=== PATIENT | male | born 1950 | race Caucasian/White ===

== ENCOUNTER 2021-11-07 09:44 | Day surgery (SDC) | payer OTHER ==
[2021-11-07] MEDS ORDERED: CARV6.25 PO (10:47)
[2021-11-07] MEDS ORDERED: ALOGLIPTIN25 M1 PO (10:47)
[2021-11-07] MEDS ORDERED: FINA5 PO (10:48)
[2021-11-07] MEDS ORDERED: CHLO25B PO (10:48)
[2021-11-07] MEDS ORDERED: GABA300 PO (10:49)
[2021-11-07] MEDS ORDERED: INSULANI SC (10:49)
[2021-11-07] MEDS ORDERED: OMEGA-3 FISH O1 EAC6 PO (10:50)
[2021-11-07] MEDS ORDERED: TAMS.4ER PO (10:50)
[2021-11-07] MEDS ORDERED: PIOG30 PO (10:50)
[2021-11-07] MEDS ORDERED: OMEP20ER PO (10:51)
[2021-11-07] MEDS ORDERED: TRAM50 PO (10:51)
== END 2021-11-07 22:50 | disposition home or self-care (01) ==
LOC: CT 09:44
DX: I25.10 Atherosclerotic heart disease of native coronary artery without angina pectoris (principal); R00.0 Tachycardia, unspecified; E78.5 Hyperlipidemia, unspecified; R00.1 Bradycardia, unspecified; E78.00 Pure hypercholesterolemia, unspecified; I12.9 Hypertensive chronic kidney disease with stage 1 through stage 4 chronic kidney disease, or unspecified chronic kidney disease; N18.9 Chronic kidney disease, unspecified; E11.22 Type 2 diabetes mellitus with diabetic chronic kidney disease; Z88.1 Allergy status to other antibiotic agents; Z88.5 Allergy status to narcotic agent; Z88.8 Allergy status to other drugs, medicaments and biological substances; Z79.4 Long term (current) use of insulin; Z79.899 Other long term (current) drug therapy
CPT/HCPCS: 75571

== ENCOUNTER 2021-11-16 08:57 | Day surgery (SDC) | payer OTHER ==
[~2021-11-16] VITALS: Ht 180.3 cm; Wt 97.6 kg
[~2021-11-16 08:57] MED LIST: ALOGLIPTIN25 M1 PO; CARV6.25 PO; CHLO25B PO; FINA5 PO; GABA300 PO; INSULANI SC; OMEGA-3 FISH O1 EAC6 PO; OMEP20ER PO; PIOG30 PO; ROSU10TA PO; TAMS.4ER PO; TRAM50 PO
[2021-11-16] MEDS ORDERED: ASPI81CH PO (09:42)
--- NOTE | 2021-11-16 11:35 | NUR ---
PT TO RECOVERY ROOM POST PROCEDURE. PT AWAKE AND CONVERSING APPROPRIATELY, DENIES CHEST PAIN POST PROCEDURE. MONITOR SB 40-50'S, B/P 136/61, AFEBRILE, SPO2 96% RA. R RADIAL SITE NO SWELLING/HEMATOMA, TR BAND IN PLACE; RUE POSITIVE PLEUTH POST TR BAND PLACEMENT. PT'S AT BEDSIDE, ATTENTIVE.
--- NOTE | 2021-11-16 12:00 | NUR ---
PT AMB TO THE BATHROOM, GAIT STEADY, VOIDED QS; SITE UNCHANGED WITH ACTIVITY.
--- NOTE | 2021-11-16 12:37 | NUR ---
DR MEJIA INTO DISCUSS PROCEDURE RESULT AND PLAN WITH PT.
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
--- NOTE | 2021-11-16 18:45 | NUR ---
PT TRANSFERRED VIA AMBULANCE TO [facility]. REPORT CALLED TO [facility]. NO QUESTIONS OR CONCERNS. FAMILY MEMEBERS AT BEDSIDE INFORMED OF PT'S RM # AND CONTACT PHONE NUMBER. THEY TOOK HIS BELONGINGS HOME AT THIS TIME. NO FURTHER NEEDS IDENTIFIED AT THIS TIME.
== END 2021-11-16 18:31 | disposition short-term general hospital (02) ==
LOC: MHTC 08:57 → PCU 13:21 → MHTC 18:31
DX: I25.10 Atherosclerotic heart disease of native coronary artery without angina pectoris (principal); E78.1 Pure hyperglyceridemia; E78.00 Pure hypercholesterolemia, unspecified; E11.22 Type 2 diabetes mellitus with diabetic chronic kidney disease; I12.9 Hypertensive chronic kidney disease with stage 1 through stage 4 chronic kidney disease, or unspecified chronic kidney disease; N18.2 Chronic kidney disease, stage 2 (mild); E66.9 Obesity, unspecified; G47.33 Obstructive sleep apnea (adult) (pediatric); Z88.8 Allergy status to other drugs, medicaments and biological substances; Z88.1 Allergy status to other antibiotic agents; Z68.31 Body mass index [BMI] 31.0-31.9, adult; Z87.891 Personal history of nicotine dependence; K21.9 Gastro-esophageal reflux disease without esophagitis; E87.6 Hypokalemia
CPT/HCPCS: 76937; 82947; 83036; 93458; 99152; 99153; A9270; C1769; C1887; C1894; C9113; J1644; J1650; J1815; J2250; J3010; J7030; J7040; Q9967